=== PATIENT | female | born 1955 | race Caucasian/White ===

== ENCOUNTER → 2016-06-11 | Outpatient (CLI) | payer OTHER ==
--- NOTE | 2016-06-11 11:03 | DX ---
Chest, PA and Lateral Views June 11, 2016 at 10:08 a.m. Clinical History: 60-year-old female with a cough and congestion for four weeks. ICD 10 Diagnostic Code: R05. Comparison Study: None. Findings: The cardiac and mediastinal silhouettes are normal in size. There is mild central perihilar bronchial wall thickening. There is no focal alveolar consolidation, pleural effusion, peripheral in terstitial edema, or pneumothorax. There are some mild degenerative changes of the midthoracic spine. There is faint mural calcification of the aortic knob. The trachea is midline. Impression: Mild perihilar bronchitis, without a focal infiltrate.
== END ==
LOC: BMCIMAGING 10:10
PROVIDERS: ATTEND Family Medicine
DX: J40 Bronchitis, not specified as acute or chronic (principal)

== ENCOUNTER → 2016-08-23 | Outpatient (CLI) | payer OTHER | LOC: FIMAGING 10:22 | DX: Z12.31 Encounter for screening mammogram for malignant neoplasm of breast (principal) | CPT/HCPCS: G0202 ==

== ENCOUNTER → 2016-09-08 | Outpatient (CLI) | payer OTHER | LOC: FIMAGING 12:26 | PROVIDERS: ATTEND Internal Medicine | DX: Z12.39 Encounter for other screening for malignant neoplasm of breast (principal); N63 Unspecified lump in breast ==

== ENCOUNTER → 2017-11-05 | Outpatient (CLI) | payer BC, OTHER | LOC: FIMAGING 07:10 | PROVIDERS: ATTEND Internal Medicine | DX: Z12.31 Encounter for screening mammogram for malignant neoplasm of breast (principal) ==